=== PATIENT | female | born 1985 ===

== ENCOUNTER 2021-08-20 17:10 | Outpatient (REF) | payer OTHER, SELFPAY ==
[2021-08-22 11:18] LABS: Codeine 341 ng/mL (Cutoff: 25); Dihydrocodeine Negative ng/mL (Cutoff: 25); Hydrocodone Negative ng/mL (Cutoff: 25); Hydromorphone Negative ng/mL (Cutoff: 25); Morphine Negative ng/mL (Cutoff: 25); Naloxone Negative ng/mL (Cutoff: 25); Norhydrocodone Negative ng/mL (Cutoff: 25); Noroxycodone Negative ng/mL (Cutoff: 25); Noroxymorphone Negative ng/mL (Cutoff: 25); Opiates Interpretation Positive.
== END 2021-08-20 17:11 | disposition home or self-care (01) ==
LOC: NCHCN 17:10
PROVIDERS: Visit Provider Nurse Practitioner Family
DX: F90.0 Attention-deficit hyperactivity disorder, predominantly inattentive type (principal); R82.5 Elevated urine levels of drugs, medicaments and biological substances
CPT/HCPCS: 80361; 80362; 80365